=== PATIENT | male | born 1945 | race Caucasian/White ===

== ENCOUNTER 2018-06-02 11:20 | Observation (INO) | payer OTHER ==
[2018-06-02] MEDS ORDERED: LR 1,000 ML IV ONE (11:58)
[2018-06-02] MEDS ORDERED: LIDOCAINE 1% 300 MG/30 ML SDV ONE (12:50)
[2018-06-02] MEDS ORDERED: BUPIVACAINE 0.5% 30 ML SDV ONE (12:50)
--- NOTE | 2018-06-02 13:08 | PDANEPAE ---
ANE History of Present Illness Ventral hernnia ANE Past Medical History - Cardiovascular History Hx Hypertension: Yes Hx Arrhythmias: No Hx Chest Pain: No Hx Coronary Artery / Peripheral Vascular Disease: No Hx CHF / Valvular Disease: No Hx Palpitations: No Cardiovascular History Comment: high chol. pcp monitors bp medications - Pulmonary History Hx COPD: No Hx Asthma/Reactive Airway Disease: No Hx Recent Upper Respiratory Infection: No Hx Oxygen in Use at Home: No Hx Sleep Apnea: No Sleep Apnea Screening Result - Last Documented: Positive Pulmonary History Comment: alex triggers - Neurologic History Hx Cerebrovascular Accident: No Hx Seizures: No Hx Dementia: No - Endocrine History Hx Diabetes: No Endocrine History Comment: hypothyroidism - Renal History Hx Renal Disorders: No - Liver History Hx Hepatic Disorders: No - Neurological & Psychiatric Hx Hx Neurological and Psychiatric Disorders: No - Cancer History Hx Cancer: No - Congenital Disorder History Hx Congenital Disorders: No - GI History Hx Gastrointestinal Disorders: Yes Gastrointestinal History Comment: hx of colonscopy x2 - Other Health History Other Health History: wears glasses. full dentures. polymalgia rheumatica - Chronic Pain History Chronic Pain: Yes (pain d/t polymalgia theumatica) - Surgical History Prior Surgeries: colonoscopy x 2 ANE Review of Systems Review of Systems: - Exercise capacity METS (RN): 4 METS ANE Patient History - Allergies Allergies/Adverse Reactions: Penicillins Allergy (Verified 06/01/18 12:41) rash and sweats - Home Medications Home medications: home medication list seen and reviewed Home Medications: Levothyroxine 01/02/14 [Last Taken 06/02/18 09:00] Losartan Potassium 10/26/14 [Last Taken 06/02/18 09:00] Herbals/Supplements -Info Only 06/01/18 [Last Taken 06/01/18 08:00] Rosuvastatin Calcium 06/01/18 [Last Taken Unknown] - NPO status NPO Status: no food or drink >8 hours NPO Since - Liquids (Date): 06/02/18 NPO Since - Liquids (Time): 09:00 NPO Since - Solids (Date): 06/01/18 - Anes Hx Anes Hx: no prior problems - Smoking Hx Smoking Status: Former smoker - Family Anes Hx Family Hx Anesthesia Complications: none ANE Labs/Vital Signs - Vital Signs Blood Pressure: 150/91 Heart Rate: 85 Respiratory Rate: 16 O2 Sat (%): 94 Height: 180.34 cm Weight: 117.934 kg ANE Physical Exam - Airway Neck exam: FROM Mallampati Score: Class 2 Mouth exam: dentures (large tonque) - Pulmonary Pulmonary: no respiratory distress - Cardiovascular Cardiovascular: regular rate and rhythym - ASA Status ASA Status: III ANE Anesthesia Plan Anesthesia Plan: general endotracheal anesthesia
[2018-06-02] MEDS ORDERED: MIDAZOLAM 2 MG/2 ML VIAL IVP ONE (13:11)
--- NOTE | 2018-06-02 13:16 | PDHPUP ---
History & Physical Update H&P update statement: This history and physical update is based on an assessment of the patient which was completed after admission or registration (within 24 hours), but prior to the surgery/procedure. H&P update: H&P reviewed & patient examined, no change in patient's condition since H&P completed
[2018-06-02] MEDS ORDERED: fentaNYL 100 MCG/2 ML INJ ONE (13:22)
[2018-06-02] MEDS ORDERED: PROPOFOL 200 MG/20 ML VIAL ONE (13:23)
[2018-06-02] MEDS ORDERED: DEXAMETHASONE 4 MG/ML VIAL ONE (13:35)
[2018-06-02] MEDS ORDERED: KETOROLAC 30 MG/1 ML SDV ONE (13:35)
[2018-06-02] MEDS ORDERED: GLYCOPYRROLATE 0.2 MG/1 ML VIAL ONE (13:36)
[2018-06-02] MEDS ORDERED: ROCURONIUM 50 MG/5 ML VIAL ONE (13:36)
[2018-06-02] MEDS ORDERED: PROMETHAZINE HCL 25 MG/ML INJ IVP PRN (13:45)
[2018-06-02] MEDS ORDERED: NALOXONE HCL 0.4 MG/ML INJ IVP PRN (13:45)
[2018-06-02] MEDS ORDERED: ONDANSETRON 4 MG/2 ML VIAL IVP PRN ×2 (13:45→15:06)
[2018-06-02] MEDS ORDERED: HYDROmorphONE/DILAUDID 2 MG/ML INJ IVP PRN (13:45)
[2018-06-02] MEDS ORDERED: fentaNYL 100 MCG/2 ML INJ IVP PRN (13:45)
[2018-06-02] MEDS ORDERED: ONDANSETRON 4 MG/2 ML VIAL ONE (13:57)
[2018-06-02] MEDS ORDERED: SUGAMMADEX SODIUM 200 MG/2 ML VIAL IVP ONE (14:02)
--- NOTE | 2018-06-02 14:02 | PDANEPAE ---
ANE History of Present Illness Ventral hernia ANE Past Medical History - Cardiovascular History Hx Hypertension: Yes Hx Arrhythmias: No Hx Chest Pain: No Hx Coronary Artery / Peripheral Vascular Disease: No Hx CHF / Valvular Disease: No Hx Palpitations: No Cardiovascular History Comment: high chol. pcp monitors bp medications - Pulmonary History Hx COPD: No Hx Asthma/Reactive Airway Disease: No Hx Recent Upper Respiratory Infection: No Hx Oxygen in Use at Home: No Hx Sleep Apnea: No Sleep Apnea Screening Result - Last Documented: Positive Pulmonary History Comment: alex triggers - Neurologic History Hx Cerebrovascular Accident: No Hx Seizures: No Hx Dementia: No - Endocrine History Hx Diabetes: No Endocrine History Comment: hypothyroidism - Renal History Hx Renal Disorders: No - Liver History Hx Hepatic Disorders: No - Neurological & Psychiatric Hx Hx Neurological and Psychiatric Disorders: No - Cancer History Hx Cancer: No - Congenital Disorder History Hx Congenital Disorders: No - GI History Hx Gastrointestinal Disorders: Yes Gastrointestinal History Comment: hx of colonscopy x2 - Other Health History Other Health History: wears glasses. full dentures. polymalgia rheumatica - Chronic Pain History Chronic Pain: Yes (pain d/t polymalgia theumatica) - Surgical History Prior Surgeries: colonoscopy x 2 ANE Review of Systems Review of Systems: - Exercise capacity METS (RN): 4 METS ANE Patient History - Allergies Allergies/Adverse Reactions: Penicillins Allergy (Verified 06/01/18 12:41) rash and sweats - Home Medications Home Medications: Levothyroxine 01/02/14 [Last Taken 06/02/18 09:00] Losartan Potassium 10/26/14 [Last Taken 06/02/18 09:00] Herbals/Supplements -Info Only 06/01/18 [Last Taken 06/01/18 08:00] Rosuvastatin Calcium 06/01/18 [Last Taken Unknown] - NPO status NPO Since - Liquids (Date): 06/02/18 NPO Since - Liquids (Time): 09:00 NPO Since - Solids (Date): 06/01/18 - Smoking Hx Smoking Status: Former smoker - Family Anes Hx Family Hx Anesthesia Complications: none ANE Labs/Vital Signs - Vital Signs Blood Pressure: 150/91 Heart Rate: 85 Respiratory Rate: 16 O2 Sat (%): 94 Height: 180.34 cm Weight: 117.934 kg
--- NOTE | 2018-06-02 14:37 | POSTANESTH ---
Post Anesthetic Evaluation Cardiovascular Status: Similar to Pre-Op Cond Respiratory Status: Similar to Pre-op Cond. Level of Consciousness/Mental Status: Alert and Oriented Pain Control: Adequate, Prn Tx Ordered Nausea/Vomiting Control: Adequate, Prn Tx Ordered Complications Possibly Related to Anesthesia: None Noted
--- NOTE | 2018-06-02 15:05 | POSTOPPROG ---
Post Op Note Date of Operation: 06/02/18 Surgeon: Dakotah Khan [employer] Supervisor: none Anesthesiologist: Nini Hermosillo Anesthesia: GET(General Endotracheal) Pre-op Diagnosis: ventral hernia Post-op Diagnosis: same Procedure: Open ventral hernia repair with mesh Findings: incarcerated omentum Inf/Abcess present in the surg proc area at time of surgery?: No EBL: Minimal
[2018-06-02] MEDS ORDERED: MAGNESIUM HYDROXIDE 30 ML UDCUP PO PRN (15:06)
[2018-06-02] MEDS ORDERED: TEMAZEPAM 15 MG CAP PO PRN (15:06)
[2018-06-02] MEDS ORDERED: oxyCODONE IR 5 MG TAB PO PRN (16:41)
[2018-06-02] MEDS: IBUPROFEN 600 MG TAB PO SCH (21:17)
[2018-06-03] MEDS: IBUPROFEN 600 MG TAB PO SCH (05:44)
[2018-06-03 08:04] VITALS: BP 126/81
--- NOTE | 2018-06-03 09:15 | SOAPPROG ---
SOAP Progress Note Assessment/Plan: Assessment/Plan: POD#1 s/p open ventral hernia repair. Kept o/n for ERASMO, pain and comorbid problems Doing well Pain 4-5/10 on ibuprofen Sats 80s while sleeping Inc c/d Overall okay for d/c Respiratory to see for CPAP trial again at home All questions addressed 06/03/18 09:12 Objective: Vital Signs Temp Pulse Resp BP Pulse Ox 36.4 C 88 16 126/81 H 92 06/03/18 08:00 06/03/18 08:00 06/03/18 08:00 06/03/18 08:00 06/03/18 08:00 06/02/18 06/03/18 06/04/18 05:59 05:59 05:59 Intake Total 900 Output Total 15 Balance 885 ICD10 Worksheet Patient Problems: Problems Problem Status Onset Obstructive sleep apnea hypopnea, moderate Acute Ventral hernia Acute - ICD10 Problem Qualifiers (1) Ventral hernia (2) Obstructive sleep apnea hypopnea, moderate
== END 2018-06-03 10:09 | disposition home or self-care (01) ==
LOC: FSGY 11:20 → F3E 15:06
PROVIDERS: ADMIT Surgery; ATTEND Surgery
PROC: 0WUF0JZ Supplement Abdominal Wall with Synthetic Substitute, Open Approach (ICD-10-PCS; principal; 2018-06-02 13:00)
DX: K43.6 Other and unspecified ventral hernia with obstruction, without gangrene (principal); G47.33 Obstructive sleep apnea (adult) (pediatric); E03.9 Hypothyroidism, unspecified; E78.00 Pure hypercholesterolemia, unspecified; I10 Essential (primary) hypertension
CPT/HCPCS: 49561; C1781; J1100; J1885; J2250; J2405; J2704; J3010